=== PATIENT | male | born 1970 | race Caucasian/White ===

== ENCOUNTER 2016-07-27 23:54 | Emergency (ER) | payer SELFPAY ==
--- NOTE | ~2016-07-27 | CR72 ---
[facility] A Service of [facility] & [facility] RADIOLOGY TEXT RESULTS PATIENT: TOMASZ KC LOCATION: [facility] : 68 UNIT #: [id number] AGE: [address]: Arslan Bell MD SEX: M ORDER DR: [id number] [facility] [address], [place] [address] [id number] MR#: [id number] Acc #: [id number] NAME: TOMASZ KC : 1970 SEX: M STUDY DATE/TIME: 07/27/2016 23:27 UNIT: [facility] ROOM: STUDY DESCRIPTION: CR Chest Single View Portable Attending Physician: rAslan Bell M.D. Ordering Physician: Arslan Bell M.D. Primary Care Physician: Primary Care Physician No MEDICAL IMAGING REPORT This report is preliminary unless electronic signature is present EXAM Portable chest INDICATIONS Fever, shortness of air, chest congestion for the past 5 days. PROCEDURE Frontal view chest. COMPARISON None FINDINGS Heart size normal. No dense consolidation, effusion or pneumothorax. IMPRESSION No active process. Dictated by... Carlos Jarvis M.D. THIS IS AN ELECTRONICALLY VERIFIED REPORT Carlos Jarvis M.D. at 07/28/2016 10:24 PM EED/ebony TD: 07/28/2016 02:46 JOB #: [id number] MEDICAL IMAGING REPORT Page 1 of 1 COPY
[2016-07-27 23:06] LABS: INFLUENZA A NEG (NEG); INFLUENZA B NEG (NEG)
== END 2016-07-28 01:47 | disposition home or self-care (01) ==
LOC: CED 23:54
PROVIDERS: Emergency Medicine
DX: B34.9 Viral infection, unspecified (principal); Z88.8 Allergy status to other drugs, medicaments and biological substances
CPT/HCPCS: 71010; 87651; 87804; 99283